=== PATIENT | female | born 1960 | race Caucasian/White ===

== ENCOUNTER 2016-07-03 05:49 | Inpatient (IN) | payer SELFPAY ==
[~2016-07-03 05:49] MED LIST: ASPIR-TRIN325 M2 PO; ASPIRIN EC81 MG PO; CHLORDIAZEPOXID25 M1 PO; COATED ASPIRIN325 M1 PO; DAILY MULTIPLE1 TAB; FOLIC ACID0.4 M1 PO; IMODIUM A-D2 M3 PO; MULTI-DAY VITA1 EAC1 PO; NEXIUM20 M1 PO; NORCO 5/325 TAB1 TAB PO; OMEPRAZOLE20 M3 PO; PERCOCET 5/3251 TAB PO; PREVACID30 MG PO; THIAMINE HCL100 M2 PO; ZOFRAN4 M2 PO
[2016-07-03] MEDS ORDERED: ASPIRIN325 M3 PO (06:30)
[2016-07-03 06:31] LABS: BASO % 0.2 % (0-2); HGB-HEMOGLOBIN 15.2 gm/dl (12.0-15.5); LYMPH % 6.8 % (20-45); LYMPH ABSOLUTE COUNT 0.4 tho/cmm (0.8-4.5); MCH (MEAN CORPUSCULAR HGB) 33.5 pg (28.0-32.0); MCHC MEAN CORPUSCULAR HGB CONC 36.2 % (32.0-36.0); MCV (MEAN CELL VOLUME) 92.5 fl (82.0-96.0); MEAN PLATELET VOLUME 8.4 cmc (9.4-12.4); MONO % 6.8 % (0-12); MONOCYTE ABSOLUTE COUNT 0.4 tho/cmm (0.0-1.2); NEUTROPHIL ABSOLUTE COUNT 4.6 tho/cmm (1.6-8.0); NEUTROPHIL-AUTOMATED 4.6 tho/cmm (1.6-8.0); NEUTROPHILS % 86.2 % (40-80); PLATELET COUNT 347 tho/cmm (150-450); RED BLOOD COUNT 4.54 mil/cmm (4.00-5.20); RED CELL DISTRIBUTION WIDTH 11.6 % (12.4-16.4); WHITE BLOOD COUNT 5.3 tho/cmm (4.0-10.0)
[2016-07-03] MEDS ORDERED: PRILOSEC OTC20 M1 PO (06:31)
[2016-07-03 06:46] LABS: ALB/GLOB RATIO 0.8 (0.8-2.0); ALBUMIN 3.9 g/dl (3.5-5.0); ALCOHOL (ETOH) <10 mg/dl (<10); ALKALINE PHOSPHATASE 90 U/L (33-138); ALT/SGPT 25 U/L (12-78); BILIRUBIN,TOTAL 0.4 mg/dl (0-1.5); BLOOD UREA NITROGEN 4 mg/dl (6-24); CALCIUM 9.2 mg/dl (8.5-10.5); CARBON DIOXIDE-VENOUS 22 mmol/L (22-32); CHLORIDE 89 mmol/l (96-110); CREATINE PHOSPHOKINASE (CPK) 82 U/L (21-215); CREATININE 0.61 mg/dl (0.50-1.10); GLUCOSE 100 mg/dL (70-110); LIPASE 642 U/L (73-393); SODIUM 122 mmol/L (135-145); eGFR VALUE FOR BLACK >60 mL/Min
[2016-07-03 06:47] LABS: ANION GAP 15 mmol/L (0-20)
[2016-07-03 06:48] LABS: AST/SGOT 31 U/L (10-40); MAGNESIUM 1.7 mg/dl (1.3-2.6)
[2016-07-03 07:43] LABS: URINE BILIRUBIN NEGATIVE (NEG); URINE BLOOD NEGATIVE (NEG); URINE GLUCOSE (UA) NEGATIVE (NEG); URINE KETONE NEGATIVE (NEG); URINE LEUKOCYTE ESTERASE POSITIVE (NEG); URINE NITRITE NEGATIVE (NEG); URINE PROTEIN NEGATIVE (NEG)
[2016-07-03 07:44] LABS: URINE APPEARANCE HAZY; URINE COLOR COLORLESS; URINE SPECIFIC GRAVITY 1.006 (1.003-1.030)
[2016-07-03 08:00] LABS: URINE BACTERIA 1+; URINE OTHER VOLUME 4 ML; URINE RBC 0 /[HPF] (0-5); URINE WBC RARE /[HPF] (0-5)
[2016-07-04 05:36] LABS: ANION GAP 14 mmol/L (0-20); BLOOD UREA NITROGEN 5 mg/dl (6-24); CALCIUM 8.1 mg/dl (8.5-10.5); CARBON DIOXIDE-VENOUS 23 mmol/L (22-32); CHLORIDE 100 mmol/l (96-110); CREATININE 0.57 mg/dl (0.50-1.10); GLUCOSE 119 mg/dL (70-110); POTASSIUM 3.7 mmol/L (3.7-5.1); SODIUM 133 mmol/L (135-145); eGFR VALUE FOR BLACK >60 mL/Min
[2016-07-04] MEDS ORDERED: VITAMIN B-1100 M3 PO (14:31)
[2016-07-04] MEDS ORDERED: FOLIC ACID1 M1 PO (14:32)
[2016-12-23] MEDS ORDERED: ASPIRIN EC325 M1 PO (04:40)
[2017-02-02] MEDS ORDERED: B COMPLEX1 EAC1 PO (11:18)
[2017-02-02] MEDS ORDERED: ALLERGY RELIEF10 M4 PO (11:19)
== END 2016-07-04 15:31 | DRG 896 ==
LOC: EDMED 05:49 → EMR2 10:10 → 5WD 20:26
PROVIDERS: Emergency Medicine; ADMIT Hospitalist
DX: F10.239 Alcohol dependence with withdrawal, unspecified (principal); K85.20 Alcohol induced acute pancreatitis without necrosis or infection; K70.10 Alcoholic hepatitis without ascites; E87.1 Hypo-osmolality and hyponatremia; K21.9 Gastro-esophageal reflux disease without esophagitis; F17.200 Nicotine dependence, unspecified, uncomplicated
CPT/HCPCS: G0480; J2060; J2405; J7030

== ENCOUNTER 2016-07-29 03:51 | Emergency (ER) | payer SELFPAY ==
[~2016-07-29 03:51] MED LIST changes: +ASPIRIN325 M3 PO; +FOLIC ACID1 M1 PO; +PRILOSEC OTC20 M1 PO; +VITAMIN B-1100 M3 PO
[2016-07-29 04:34] LABS: BASO % 0.2 % (0-2); HCT-HEMATOCRIT 42.2 % (34.0-49.0); HGB-HEMOGLOBIN 15.5 gm/dl (12.0-15.5); LYMPH % 18.4 % (20-45); LYMPH ABSOLUTE COUNT 0.8 tho/cmm (0.8-4.5); MCH (MEAN CORPUSCULAR HGB) 34.1 pg (28.0-32.0); MCV (MEAN CELL VOLUME) 92.7 fl (82.0-96.0); MEAN PLATELET VOLUME 8.8 cmc (9.4-12.4); MONO % 7.1 % (0-12); MONOCYTE ABSOLUTE COUNT 0.3 tho/cmm (0.0-1.2); NEUTROPHILS % 74.3 % (40-80); PLATELET COUNT 287 tho/cmm (150-450); RED BLOOD COUNT 4.55 mil/cmm (4.00-5.20); RED CELL DISTRIBUTION WIDTH 11.7 % (12.4-16.4); WHITE BLOOD COUNT 4.1 tho/cmm (4.0-10.0)
[2016-07-29 04:46] LABS: ALB/GLOB RATIO 0.7 (0.8-2.0); ALBUMIN 3.6 g/dl (3.5-5.0); ALCOHOL (ETOH) 141 mg/dl (<10); ALKALINE PHOSPHATASE 91 U/L (33-138); ALT/SGPT 37 U/L (12-78); ANION GAP 15 mmol/L (0-20); AST/SGOT 40 U/L (10-40); BILIRUBIN,TOTAL 0.4 mg/dl (0-1.5); BLOOD UREA NITROGEN 4 mg/dl (6-24); CALCIUM 8.7 mg/dl (8.5-10.5); CARBON DIOXIDE-VENOUS 23 mmol/L (22-32); CHLORIDE 93 mmol/l (96-110); CREATININE 0.48 mg/dl (0.50-1.10); GLUCOSE 91 mg/dL (70-110); POTASSIUM 3.5 mmol/L (3.7-5.1); SODIUM 127 mmol/L (135-145); eGFR VALUE FOR BLACK >90 mL/Min
[2016-07-29 05:02] LABS: MCHC MEAN CORPUSCULAR HGB CONC 36.7 % (32.0-36.0)
[2016-12-23] MEDS ORDERED: ASPIRIN EC325 M1 PO (04:40)
[2017-02-02] MEDS ORDERED: B COMPLEX1 EAC1 PO (11:18)
[2017-02-02] MEDS ORDERED: ALLERGY RELIEF10 M4 PO (11:19)
== END 2016-07-29 05:30 ==
LOC: EDMED 03:51
PROVIDERS: Emergency Medicine Emergency Medical Services
DX: F10.129 Alcohol abuse with intoxication, unspecified (principal); Y90.6 Blood alcohol level of 120-199 mg/100 ml; K21.9 Gastro-esophageal reflux disease without esophagitis; F17.200 Nicotine dependence, unspecified, uncomplicated; Z79.899 Other long term (current) drug therapy
CPT/HCPCS: G0480; J2060; J7030

== ENCOUNTER 2016-08-02 09:38 | Observation (INO) | payer SELFPAY ==
[2016-08-02 09:45] LABS: BASO % 0.6 % (0-2); EOS % 0.2 % (0-7); HCT-HEMATOCRIT 40.6 % (34.0-49.0); HGB-HEMOGLOBIN 14.6 gm/dl (12.0-15.5); LYMPH % 12.4 % (20-45); LYMPH ABSOLUTE COUNT 0.7 tho/cmm (0.8-4.5); MCV (MEAN CELL VOLUME) 91.6 fl (82.0-96.0); MEAN PLATELET VOLUME 8.7 cmc (9.4-12.4); MONO % 9.5 % (0-12); MONOCYTE ABSOLUTE COUNT 0.5 tho/cmm (0.0-1.2); NEUTROPHIL ABSOLUTE COUNT 4.1 tho/cmm (1.6-8.0); NEUTROPHIL-AUTOMATED 4.1 tho/cmm (1.6-8.0); NEUTROPHILS % 77.3 % (40-80); PLATELET COUNT 291 tho/cmm (150-450); RED BLOOD COUNT 4.43 mil/cmm (4.00-5.20); WHITE BLOOD COUNT 5.3 tho/cmm (4.0-10.0)
[2016-08-02 09:55] LABS: ALB/GLOB RATIO 0.7 (0.8-2.0); ALBUMIN 3.5 g/dl (3.5-5.0); ALCOHOL (ETOH) 36 mg/dl (<10); ALKALINE PHOSPHATASE 94 U/L (33-138); ALT/SGPT 28 U/L (12-78); BILIRUBIN,TOTAL 0.4 mg/dl (0-1.5); BLOOD UREA NITROGEN 2 mg/dl (6-24); CALCIUM 8.7 mg/dl (8.5-10.5); CARBON DIOXIDE-VENOUS 20 mmol/L (22-32); CHLORIDE 90 mmol/l (96-110); CREATININE 0.48 mg/dl (0.50-1.10); GLUCOSE 84 mg/dL (70-110); LIPASE 247 U/L (73-393); SODIUM 123 mmol/L (135-145); eGFR VALUE FOR BLACK >90 mL/Min
[2016-08-02 10:01] LABS: TSH-THYROID STIMULATING HORM. 0.98 uIU/ml (0.40-3.80)
[2016-08-02 10:02] LABS: ANION GAP 17 mmol/L (0-20); MAGNESIUM 1.8 mg/dl (1.3-2.6)
[2016-08-02 10:03] LABS: AST/SGOT 31 U/L (10-40); POTASSIUM 3.7 mmol/L (3.7-5.1)
[2016-08-02 10:06] LABS: URINE BILIRUBIN NEGATIVE (NEG); URINE BLOOD NEGATIVE (NEG); URINE GLUCOSE (UA) NEGATIVE (NEG); URINE KETONE NEGATIVE (NEG); URINE LEUKOCYTE ESTERASE NEGATIVE (NEG); URINE NITRITE NEGATIVE (NEG); URINE PROTEIN NEGATIVE (NEG)
[2016-08-02 10:14] LABS: URINE APPEARANCE CLEAR; URINE COLOR YELLOW
[2016-08-02 11:49] LABS: OSMOLALITY 258 mOsm/kg (275-295)
[2016-08-02 14:14] LABS: URINE CREATININE-RANDOM 8 mg/dl (30-125); URINE SODIUM-RANDOM 38 mmol/L (20-110)
[2016-08-02 14:15] LABS: URINE PRT/CR RATIO 0.62 Ratio (0.0-0.20); URINE TOTAL PROTEIN-RANDOM <5.0 mg/dl (<11.8)
[2016-08-02 16:13] LABS: ANION GAP 11 mmol/L (0-20); BLOOD UREA NITROGEN 4 mg/dl (6-24); CALCIUM 8.3 mg/dl (8.5-10.5); CARBON DIOXIDE-VENOUS 25 mmol/L (22-32); CHLORIDE 98 mmol/l (96-110); CREATININE 0.56 mg/dl (0.50-1.10); GLUCOSE 107 mg/dL (70-110); POTASSIUM 3.9 mmol/L (3.7-5.1); SODIUM 130 mmol/L (135-145); eGFR VALUE FOR BLACK >90 mL/Min
[2016-08-03 06:24] LABS: ANION GAP 10 mmol/L (0-20); BLOOD UREA NITROGEN 5 mg/dl (6-24); CALCIUM 8.2 mg/dl (8.5-10.5); CARBON DIOXIDE-VENOUS 26 mmol/L (22-32); CHLORIDE 99 mmol/l (96-110); CREATININE 0.63 mg/dl (0.50-1.10); GLUCOSE 99 mg/dL (70-110); POTASSIUM 4.2 mmol/L (3.7-5.1); SODIUM 131 mmol/L (135-145); eGFR VALUE FOR BLACK >90 mL/Min
[2016-08-03] MEDS ORDERED: CHLORDIAZEPOXID25 M1 PO (10:57)
[2016-12-23] MEDS ORDERED: ASPIRIN EC325 M1 PO (04:40)
[2017-02-02] MEDS ORDERED: B COMPLEX1 EAC1 PO (11:18)
[2017-02-02] MEDS ORDERED: ALLERGY RELIEF10 M4 PO (11:19)
== END 2016-08-03 11:30 ==
LOC: EDMED 09:38 → EMR2 11:21 → CAR1 13:22
PROVIDERS: Emergency Medicine; Hospitalist; ADMIT Hospitalist
DX: E87.1 Hypo-osmolality and hyponatremia (principal); K21.9 Gastro-esophageal reflux disease without esophagitis; F17.210 Nicotine dependence, cigarettes, uncomplicated; R53.1 Weakness; F10.239 Alcohol dependence with withdrawal, unspecified; Z79.899 Other long term (current) drug therapy; Z88.4 Allergy status to anesthetic agent; Z98.890 Other specified postprocedural states
CPT/HCPCS: C9113; G0378; G0480; G8978-GP-CJ; G8979-GP-CJ; G8980-GP-CJ; J2060; J2405; J7030

== ENCOUNTER 2016-08-22 04:40 | Emergency (ER) | payer SELFPAY ==
[2016-08-22 05:50] LABS: BASO % 0.3 % (0-2); HCT-HEMATOCRIT 41.9 % (34.0-49.0); LYMPH % 6.9 % (20-45); LYMPH ABSOLUTE COUNT 0.5 tho/cmm (0.8-4.5); MCH (MEAN CORPUSCULAR HGB) 33.6 pg (28.0-32.0); MCHC MEAN CORPUSCULAR HGB CONC 35.8 % (32.0-36.0); MCV (MEAN CELL VOLUME) 93.7 fl (82.0-96.0); MEAN PLATELET VOLUME 8.6 cmc (9.4-12.4); MONO % 4.2 % (0-12); MONOCYTE ABSOLUTE COUNT 0.3 tho/cmm (0.0-1.2); NEUTROPHIL ABSOLUTE COUNT 6.3 tho/cmm (1.6-8.0); NEUTROPHIL-AUTOMATED 6.3 tho/cmm (1.6-8.0); NEUTROPHILS % 88.6 % (40-80); PLATELET COUNT 406 tho/cmm (150-450); RED BLOOD COUNT 4.47 mil/cmm (4.00-5.20); RED CELL DISTRIBUTION WIDTH 11.7 % (12.4-16.4); WHITE BLOOD COUNT 7.1 tho/cmm (4.0-10.0)
[2016-08-22 06:03] LABS: INR 0.9 INR (0.9-1.1)
[2016-08-22 06:04] LABS: ALB/GLOB RATIO 0.7 (0.8-2.0); ALBUMIN 3.5 g/dl (3.5-5.0); ALCOHOL (ETOH) 86 mg/dl (<10); ALKALINE PHOSPHATASE 91 U/L (33-138); ALT/SGPT 28 U/L (12-78); ANION GAP 14 mmol/L (0-20); AST/SGOT 31 U/L (10-40); BILIRUBIN,TOTAL 0.3 mg/dl (0-1.5); BLOOD UREA NITROGEN 5 mg/dl (6-24); CALCIUM 8.7 mg/dl (8.5-10.5); CARBON DIOXIDE-VENOUS 25 mmol/L (22-32); CHLORIDE 95 mmol/l (96-110); GLUCOSE 82 mg/dL (70-110); LIPASE 407 U/L (73-393); POTASSIUM 4.1 mmol/L (3.7-5.1); SODIUM 130 mmol/L (135-145); eGFR VALUE FOR BLACK >90 mL/Min
[2016-08-22 06:08] LABS: TSH-THYROID STIMULATING HORM. 0.92 uIU/ml (0.40-3.80)
[2016-08-22 06:32] LABS: URINE COLOR PALE YELLOW
[2016-08-22 06:33] LABS: URINE APPEARANCE CLEAR; URINE BILIRUBIN NEGATIVE (NEG); URINE BLOOD NEGATIVE (NEG); URINE GLUCOSE (UA) NEGATIVE (NEG); URINE KETONE NEGATIVE (NEG); URINE LEUKOCYTE ESTERASE NEGATIVE (NEG); URINE NITRITE NEGATIVE (NEG); URINE PROTEIN NEGATIVE (NEG)
[2016-08-22] MEDS ORDERED: ZOFRAN4 M2 PO (06:36)
[2016-12-23] MEDS ORDERED: ASPIRIN EC325 M1 PO (04:40)
[2017-02-02] MEDS ORDERED: B COMPLEX1 EAC1 PO (11:18)
[2017-02-02] MEDS ORDERED: ALLERGY RELIEF10 M4 PO (11:19)
== END 2016-08-22 06:51 ==
LOC: EDMED 04:40
PROVIDERS: Emergency Medicine
DX: E87.1 Hypo-osmolality and hyponatremia (principal); F10.10 Alcohol abuse, uncomplicated; Y90.4 Blood alcohol level of 80-99 mg/100 ml; K21.9 Gastro-esophageal reflux disease without esophagitis; Z87.891 Personal history of nicotine dependence
CPT/HCPCS: G0480; J2060; J2405; J7030

== ENCOUNTER 2016-09-20 04:29 | Emergency (ER) | payer SELFPAY ==
[2016-09-20] MEDS ORDERED: PREVACID15 M2 PO (04:36)
[2016-09-20] MEDS ORDERED: FISH OIL 11000 MG/CA PO (04:36)
[2016-09-20 04:59] LABS: BASO % 0.2 % (0-2); HCT-HEMATOCRIT 43.5 % (34.0-49.0); HGB-HEMOGLOBIN 15.8 gm/dl (12.0-15.5); IMMATURE GRANULOCYTES ABSOLUTE 0.01 tho/cmm (0-0.03); IMMATURE GRANULOCYTES PERCENT 0.2 % (0-0.3); LYMPH % 12.8 % (20-45); LYMPH ABSOLUTE COUNT 0.7 tho/cmm (0.8-4.5); MCH (MEAN CORPUSCULAR HGB) 33.2 pg (28.0-32.0); MCHC MEAN CORPUSCULAR HGB CONC 36.3 % (32.0-36.0); MCV (MEAN CELL VOLUME) 91.4 fl (82.0-96.0); MEAN PLATELET VOLUME 8.4 cmc (9.4-12.4); MONO % 7.6 % (0-12); MONOCYTE ABSOLUTE COUNT 0.4 tho/cmm (0.0-1.2); NEUTROPHIL ABSOLUTE COUNT 4.4 tho/cmm (1.6-8.0); NEUTROPHIL-AUTOMATED 4.4 tho/cmm (1.6-8.0); NEUTROPHILS % 79.2 % (40-80); PLATELET COUNT 367 tho/cmm (150-450); RED BLOOD COUNT 4.76 mil/cmm (4.00-5.20); RED CELL DISTRIBUTION WIDTH 11.5 % (12.4-16.4); WHITE BLOOD COUNT 5.5 tho/cmm (4.0-10.0)
[2016-09-20 05:16] LABS: ALB/GLOB RATIO 0.7 (0.8-2.0); ALBUMIN 3.6 g/dl (3.5-5.0); ALCOHOL (ETOH) 38 mg/dl (<10); ALKALINE PHOSPHATASE 97 U/L (33-138); ALT/SGPT 20 U/L (12-78); ANION GAP 15 mmol/L (0-20); AST/SGOT 24 U/L (10-40); BILIRUBIN,TOTAL 0.3 mg/dl (0-1.5); BLOOD UREA NITROGEN 4 mg/dl (6-24); CALCIUM 8.7 mg/dl (8.5-10.5); CARBON DIOXIDE-VENOUS 23 mmol/L (22-32); CHLORIDE 95 mmol/l (96-110); CREATININE 0.63 mg/dl (0.50-1.10); GLUCOSE 93 mg/dL (70-110); LIPASE 489 U/L (73-393); MAGNESIUM 1.8 mg/dl (1.8-2.6); SODIUM 129 mmol/L (135-145); eGFR VALUE FOR BLACK >90 mL/Min
[2016-12-23] MEDS ORDERED: ASPIRIN EC325 M1 PO (04:40)
[2017-02-02] MEDS ORDERED: B COMPLEX1 EAC1 PO (11:18)
[2017-02-02] MEDS ORDERED: ALLERGY RELIEF10 M4 PO (11:19)
== END 2016-09-20 07:21 ==
LOC: EDMED 04:29
PROVIDERS: Emergency Medicine
DX: R07.89 Other chest pain (principal); K85.90 Acute pancreatitis without necrosis or infection, unspecified; F10.10 Alcohol abuse, uncomplicated; Y90.1 Blood alcohol level of 20-39 mg/100 ml; F17.200 Nicotine dependence, unspecified, uncomplicated; Z79.899 Other long term (current) drug therapy; Z98.890 Other specified postprocedural states
CPT/HCPCS: G0480; J1885; J2060; J2270; J2405; J7030

== ENCOUNTER 2016-09-28 14:11 | Emergency (ER) | payer SELFPAY ==
[~2016-09-28 14:11] MED LIST changes: +FISH OIL 11000 MG/CA PO; +PREVACID15 M2 PO
[2016-09-28] MEDS ORDERED: OMEPRAZOLE20 M4 PO (15:05)
[2016-09-28 15:10] LABS: INR 0.9 INR (0.9-1.1); PROTHROMBIN TIME 9.9 SECONDS (9.0-13.6)
[2016-09-28 15:20] LABS: ALB/GLOB RATIO 0.7 (0.8-2.0); ALBUMIN 3.6 g/dl (3.5-5.0); ALKALINE PHOSPHATASE 94 U/L (33-138); ALT/SGPT 18 U/L (12-78); ANION GAP 15 mmol/L (0-20); AST/SGOT 20 U/L (10-40); BILIRUBIN,TOTAL 0.3 mg/dl (0-1.5); BLOOD UREA NITROGEN 4 mg/dl (6-24); CALCIUM 8.9 mg/dl (8.5-10.5); CARBON DIOXIDE-VENOUS 24 mmol/L (22-32); CHLORIDE 96 mmol/l (96-110); CREATININE 0.65 mg/dl (0.50-1.10); GLUCOSE 85 mg/dL (70-110); LIPASE 221 U/L (73-393); POTASSIUM 3.7 mmol/L (3.7-5.1); SODIUM 131 mmol/L (135-145); eGFR VALUE FOR BLACK >90 mL/Min
[2016-09-28 15:30] LABS: BASO % 0.6 % (0-2); EOS % 0.3 % (0-7); HCT-HEMATOCRIT 43.1 % (34.0-49.0); HGB-HEMOGLOBIN 15.8 gm/dl (12.0-15.5); IMMATURE GRANULOCYTES ABSOLUTE 0.01 tho/cmm (0-0.03); IMMATURE GRANULOCYTES PERCENT 0.3 % (0-0.3); LYMPH % 33.7 % (20-45); LYMPH ABSOLUTE COUNT 1.1 tho/cmm (0.8-4.5); MCH (MEAN CORPUSCULAR HGB) 33.3 pg (28.0-32.0); MCHC MEAN CORPUSCULAR HGB CONC 36.7 % (32.0-36.0); MCV (MEAN CELL VOLUME) 90.9 fl (82.0-96.0); MEAN PLATELET VOLUME 8.5 cmc (9.4-12.4); MONO % 7.7 % (0-12); MONOCYTE ABSOLUTE COUNT 0.3 tho/cmm (0.0-1.2); NEUTROPHIL ABSOLUTE COUNT 1.9 tho/cmm (1.6-8.0); NEUTROPHIL-AUTOMATED 1.9 tho/cmm (1.6-8.0); NEUTROPHILS % 57.4 % (40-80); PLATELET COUNT 296 tho/cmm (150-450); RED BLOOD COUNT 4.74 mil/cmm (4.00-5.20); RED CELL DISTRIBUTION WIDTH 11.6 % (12.4-16.4); WHITE BLOOD COUNT 3.3 tho/cmm (4.0-10.0)
[2016-09-28] MEDS ORDERED: ZOFRAN ODT4 MG PO (17:06)
[2016-12-23] MEDS ORDERED: ASPIRIN EC325 M1 PO (04:40)
[2017-02-02] MEDS ORDERED: B COMPLEX1 EAC1 PO (11:18)
[2017-02-02] MEDS ORDERED: ALLERGY RELIEF10 M4 PO (11:19)
== END 2016-09-28 18:09 ==
LOC: EDMED 14:11
PROVIDERS: Emergency Medicine
DX: K29.70 Gastritis, unspecified, without bleeding (principal); K92.0 Hematemesis
CPT/HCPCS: C9113; J2405; J7030

== ENCOUNTER 2016-10-04 12:08 | Emergency (ER) | payer SELFPAY ==
[~2016-10-04 12:08] MED LIST changes: +OMEPRAZOLE20 M4 PO; +ZOFRAN ODT4 MG PO
[2016-12-23] MEDS ORDERED: ASPIRIN EC325 M1 PO (04:40)
[2017-02-02] MEDS ORDERED: B COMPLEX1 EAC1 PO (11:18)
[2017-02-02] MEDS ORDERED: ALLERGY RELIEF10 M4 PO (11:19)
== END 2016-10-04 13:00 | disposition left against medical advice (07) ==
LOC: EDMED 12:08
DX: R11.2 Nausea with vomiting, unspecified (principal); R19.7 Diarrhea, unspecified; Z53.21 Procedure and treatment not carried out due to patient leaving prior to being seen by health care provider

== ENCOUNTER 2016-10-12 07:27 | Emergency (ER) | payer SELFPAY ==
[2016-10-12 08:24] LABS: BASO % 0.2 % (0-2); EOS % 0.2 % (0-7); HCT-HEMATOCRIT 40.5 % (34.0-49.0); HGB-HEMOGLOBIN 14.4 gm/dl (12.0-15.5); LYMPH % 15.4 % (20-45); LYMPH ABSOLUTE COUNT 0.7 tho/cmm (0.8-4.5); MCH (MEAN CORPUSCULAR HGB) 33.3 pg (28.0-32.0); MCHC MEAN CORPUSCULAR HGB CONC 35.6 % (32.0-36.0); MCV (MEAN CELL VOLUME) 93.5 fl (82.0-96.0); MEAN PLATELET VOLUME 8.4 cmc (9.4-12.4); MONO % 7.8 % (0-12); MONOCYTE ABSOLUTE COUNT 0.3 tho/cmm (0.0-1.2); NEUTROPHIL ABSOLUTE COUNT 3.3 tho/cmm (1.6-8.0); NEUTROPHIL-AUTOMATED 3.3 tho/cmm (1.6-8.0); NEUTROPHILS % 76.4 % (40-80); PLATELET COUNT 319 tho/cmm (150-450); RED BLOOD COUNT 4.33 mil/cmm (4.00-5.20); RED CELL DISTRIBUTION WIDTH 11.7 % (12.4-16.4); WHITE BLOOD COUNT 4.4 tho/cmm (4.0-10.0)
[2016-10-12 08:34] LABS: URINE BILIRUBIN NEGATIVE (NEG); URINE BLOOD NEGATIVE (NEG); URINE GLUCOSE (UA) NEGATIVE (NEG); URINE KETONE NEGATIVE (NEG); URINE LEUKOCYTE ESTERASE NEGATIVE (NEG); URINE NITRITE NEGATIVE (NEG); URINE PROTEIN NEGATIVE (NEG); URINE SPECIFIC GRAVITY 1.005 (1.003-1.030)
[2016-10-12 08:37] LABS: ALB/GLOB RATIO 0.7 (0.8-2.0); ALBUMIN 3.5 g/dl (3.5-5.0); ALCOHOL (ETOH) 145 mg/dl (<10); ALKALINE PHOSPHATASE 95 U/L (33-138); ALT/SGPT 31 U/L (12-78); ANION GAP 12 mmol/L (0-20); AST/SGOT 30 U/L (10-40); BILIRUBIN,TOTAL 0.3 mg/dl (0-1.5); BLOOD UREA NITROGEN 5 mg/dl (6-24); CALCIUM 8.3 mg/dl (8.5-10.5); CARBON DIOXIDE-VENOUS 26 mmol/L (22-32); CHLORIDE 97 mmol/l (96-110); CREATININE 0.77 mg/dl (0.50-1.10); GLUCOSE 95 mg/dL (70-110); LIPASE 357 U/L (73-393); POTASSIUM 3.8 mmol/L (3.7-5.1); SODIUM 131 mmol/L (135-145); eGFR VALUE FOR BLACK >90 mL/Min
[2016-10-12 08:47] LABS: URINE APPEARANCE CLEAR; URINE COLOR PALE YELLOW
[2016-10-12 09:00] LABS: C-REACTIVE PROTEIN <0.3 mg/dl (0-0.9)
[2016-10-12] MEDS ORDERED: COMPAZINE10 MG PO (10:51)
[2016-10-12] MEDS ORDERED: ATIVAN1 M2 PO (11:05)
[2016-12-23] MEDS ORDERED: ASPIRIN EC325 M1 PO (04:40)
[2017-02-02] MEDS ORDERED: B COMPLEX1 EAC1 PO (11:18)
[2017-02-02] MEDS ORDERED: ALLERGY RELIEF10 M4 PO (11:19)
== END 2016-10-12 11:08 ==
LOC: EDMED 07:27
PROVIDERS: Emergency Medicine
DX: F10.10 Alcohol abuse, uncomplicated (principal); R11.2 Nausea with vomiting, unspecified; R10.84 Generalized abdominal pain; K21.9 Gastro-esophageal reflux disease without esophagitis; Z87.19 Personal history of other diseases of the digestive system; F17.200 Nicotine dependence, unspecified, uncomplicated; Z98.890 Other specified postprocedural states
CPT/HCPCS: C9113; G0480; J2060; J2405; J7030; Q9967

== ENCOUNTER 2016-10-21 10:49 | Emergency (ER) | payer SELFPAY ==
[~2016-10-21 10:49] MED LIST changes: +ATIVAN1 M2 PO; +COMPAZINE10 MG PO
[2016-10-21] MEDS ORDERED: ZOFRAN4 M2 PO (12:55)
[2016-10-21 13:27] LABS: BASO % 0.2 % (0-2); EOS % 0.2 % (0-7); HCT-HEMATOCRIT 42.6 % (34.0-49.0); HGB-HEMOGLOBIN 15.6 gm/dl (12.0-15.5); LYMPH % 11.2 % (20-45); LYMPH ABSOLUTE COUNT 0.5 tho/cmm (0.8-4.5); MCH (MEAN CORPUSCULAR HGB) 33.4 pg (28.0-32.0); MCV (MEAN CELL VOLUME) 91.2 fl (82.0-96.0); MONOCYTE ABSOLUTE COUNT 0.4 tho/cmm (0.0-1.2); NEUTROPHIL ABSOLUTE COUNT 3.2 tho/cmm (1.6-8.0); NEUTROPHIL-AUTOMATED 3.2 tho/cmm (1.6-8.0); NEUTROPHILS % 79.4 % (40-80); PLATELET COUNT 338 tho/cmm (150-450); RED BLOOD COUNT 4.67 mil/cmm (4.00-5.20); WHITE BLOOD COUNT 4.1 tho/cmm (4.0-10.0)
[2016-10-21 13:34] LABS: MCHC MEAN CORPUSCULAR HGB CONC 36.6 % (32.0-36.0)
[2016-10-21 13:44] LABS: ALB/GLOB RATIO 0.7 (0.8-2.0); ALBUMIN 3.7 g/dl (3.5-5.0); ALCOHOL (ETOH) 57 mg/dl (<10); ALKALINE PHOSPHATASE 89 U/L (33-138); ALT/SGPT 29 U/L (12-78); BILIRUBIN,TOTAL 0.5 mg/dl (0-1.5); BLOOD UREA NITROGEN 4 mg/dl (6-24); CARBON DIOXIDE-VENOUS 20 mmol/L (22-32); CHLORIDE 95 mmol/l (96-110); CREATININE 0.53 mg/dl (0.50-1.10); GLUCOSE 90 mg/dL (70-110); LIPASE 359 U/L (73-393); SODIUM 127 mmol/L (135-145); eGFR VALUE FOR BLACK >90 mL/Min
[2016-10-21 13:48] LABS: ANION GAP 17 mmol/L (0-20); AST/SGOT 52 U/L (10-40); POTASSIUM 4.8 mmol/L (3.7-5.1)
[2016-10-21] MEDS ORDERED: VALIUM5 M1 PO (14:54)
[2016-12-23] MEDS ORDERED: ASPIRIN EC325 M1 PO (04:40)
[2017-02-02] MEDS ORDERED: B COMPLEX1 EAC1 PO (11:18)
[2017-02-02] MEDS ORDERED: ALLERGY RELIEF10 M4 PO (11:19)
== END 2016-10-21 15:04 ==
LOC: EDMED 10:49
PROVIDERS: Nurse Practitioner Family
DX: E87.1 Hypo-osmolality and hyponatremia (principal); R11.2 Nausea with vomiting, unspecified; F10.10 Alcohol abuse, uncomplicated; F17.210 Nicotine dependence, cigarettes, uncomplicated; Y90.2 Blood alcohol level of 40-59 mg/100 ml
CPT/HCPCS: G0480; J2060; J2405; J7030